=== PATIENT | female | born 1950 | race Caucasian/White ===

== ENCOUNTER 2020-02-21 07:33 | Outpatient (CLI) | payer BC, SELFPAY ==
[2020-02-21 08:09] VITALS: BMI 33.5
--- NOTE | 2020-02-21 08:11 | ECG_ITS ---
NAME OF STUDY: EXERCISE SESTAMIBI STRESS TEST INDICATION: Chest Pain EXERCISE DATA: The patient was exercised by Abiel protocol. Baseline heart rate was 98 beats per minute. Baseline blood pressure was 139/80 millimeters of mercury. Target heart rate was 153 beats per minute. Maximum heart rate achieved was 138, which was 90 % of the target heart rate. Maximum blood pressure was 189/80 millimeters of mercury. Total exercise time was 7 minutes 12 sec. Maximum METs achieved was 10.2, maximum VO2 was 35.7. The reason for ending the test maximum effort achieved. The patient complained of shortness of breath during the stress test, which then resolved at the end of the test. ELECTROCARDIOGRAM: BASELINE: Showed sinus rhythm, normal axis, no significant ST-T changes at the baseline noted. EXERCISE: At the peak exercise level, no significant ST-T changes suggestive of ischemia noted. RECOVERY: During the recovery period, heart rate dropped appropriately. No significant ST-T changes in the recovery suggestive of ischemia noted. CONCLUSION: 1. Exercise capacity fair. 2. Heart rate response was appropriate. 3. Blood pressure response was appropriate. 4. Symptoms not suggestive of ischemia. 5. Electrocardiogram portion of the stress test was not suggestive of ischemia. Electronically Signed On 02-23-2020 18:11:36 CDT by Opal Ortiz M.D. [email or web address]
--- NOTE | 2020-02-21 08:11 | NMCV_ITS ---
NM elizabeth perf SPECT r/s* [id number] Deedee Molina Age: 69 Gender: F : 1950 Exam Date: 02/21/2020 08:11 Ordering Phys: Opal Ortiz MD ([email or web address]) Technologist: LAURA Durham Exam Location: [facility] Indications: SHORTNESS OF BREATH STRESS TEST Please [facility] IMAGE PROTOCOL Rest/Stress 1 Exercise Day Radiopharmaceutical Dose (mCi) Administration Site Administered by Rest: Tc-99m 10.7 IV LAURA Durham Sestamibi Stress:Tc-99m 33.0 IV LAURA Durham Sestamibi Rest: 21-Feb-2020 60 Discovery 630 Stress: 21-Feb-2020 15 Discovery 630 Radiopharmaceutical was injected at 85 % maximum heart rate. Images obtained in supine and prone position. SPECT RESULTS Technical Quality: Excellent Raw Data Analysis: Normal Image Corrections: No attenuation or motion correction applied Summed Stress Score: 0 Summed Rest Score: 0 Summed Difference Score: 0 PERFUSION FINDINGS SPECT images demonstrate homogeneous tracer distribution throughout the myocardium. FUNCTIONAL RESULTS (calculated via Gated SPECT) Stress Image LV EF (%): 93 Stress EDV (mL):61 TID: 0.89 Stress ESV (mL):4 Rest Image LV EF (%): 93 FUNCTIONAL FINDINGS: There is normal left ventricular systolic function. IMPRESSIONS Myocardial perfusion imaging is normal and low probability for obstructive coronary artery disease. EKG segment will be documented separately. Opal Ortzi MD (Electronically Signed) Final Date: 21 February 2020 14:54 S
[2020-02-21 09:50] VITALS: PULSE 100
== END 2020-02-21 07:34 | disposition home or self-care (01) ==
LOC: RAD 07:35 → CDL 07:39
PROVIDERS: Family Provider Nurse Practitioner Family; PCP Nurse Practitioner Family; Visit Provider Internal Medicine Cardiovascular Disease
DX: R06.02 Shortness of breath (principal)
CPT/HCPCS: 78452; 93017; A9500

== ENCOUNTER 2020-03-04 07:37 | Outpatient (CLI) | payer BC, SELFPAY ==
--- NOTE | 2020-03-04 08:00 | USCV_ITS ---
Jesse Deedee Age: 69 Gender: F : 1950 Exam Date: 03/04/2020 07:39 Ordering Phys: Opal Ortiz MD ([email or web address]) Technologist: Tamra Conroy [place] [facility] [place]ication: SOB BP: 144 / 77 HR: 83 Rhythm: Sinus Technical Quality: Technically difficult study MEASUREMENTS (Male / Female) Normal Values 2D ECHO LV Diastolic Diameter PLAX 3.8 cm 4.2 - 5.9 / 3.9 - 5.3 cm LV Systolic Diameter PLAX 1.8 cm LV Chamber Size 2.9 cm IVS Diastolic Thickness 1.0 cm 0.6 - 1.0 / 0.6 - 0.9 cm IVS Systolic Thickness 1.4 cm LVPW Diastolic Thickness 1.4 cm 0.6 - 1.0 / 0.6 - 0.9 cm LVPW Systolic Thickness 1.5 cm RV Chamber Size 3.4 cm LVOT Diameter 2.0 cm LV Ejection Fraction 2D Teich 84.0 % LV Ejection Fraction MOD 2C 27.6 % LV Ejection Fraction 2C AL 27.6 % LA Diameter 3.5 cm LA Width 3.2 cm LA Height 4.0 cm RA Width 2.6 cm RA Height 3.7 cm M-MODE LV Diastolic Diameter MM 4.5 cm 4.2 - 5.9 / 3.9 - 5.3 cm LV Systolic Diameter MM 2.8 cm LV Ejection Fraction MM Teich 68.4 % IVS Diastolic Thickness MM 0.6 cm 0.6 - 1.0 / 0.6 - 0.9 cm IVS Systolic Thickness MM 1.1 cm LVPW Diastolic Thickness MM 0.8 cm 0.6 - 1.0 / 0.6 - 0.9 cm LVPW Systolic Thickness MM 1.3 cm Aortic Annulus Diameter 3.2 cm LA Ao Ratio MM 1.1 MV E Point Septal Separation 0.6 cm DOPPLER AV Peak Velocity 136.0 cm/s LVOT Peak Velocity 104.0 cm/s AV Area Cont Eq vti 2.4 cm squared AV Area Cont Eq pk 2.4 cm squared MV Area PHT 4.8 cm squared Mitral E to A Ratio 0.7 MV E' Velocity 10.0 cm/s Mitral E to MV E' Ratio 5.7 Mitral E to LV E' Lateral Ratio 4.9 Mitral E to LV E' Septal Ratio 6.7 TR Peak Velocity 227.0 cm/s TR Peak Gradient 20.5 mmHg TV Peak E Velocity 58.0 cm/s Right Atrial Pressure 3.0 mmHg Pulmonary Artery Systolic Pressu 23.6 mmHg PV Peak Velocity 78.0 cm/s RV Acceleration Time 0.1 s RV Ejection Time 0.3 s RV AcT/ET 0.4 FINDINGS Left Ventricle Normal left ventricular cavity size. Normal left ventricular systolic function. No regional wall motion abnormalities. Left ventricular ejection fraction is estimated at 68 %. Grade I/IV diastolic dysfunction (abnormal relaxation filling pattern), normal to mildly elevated filling pressures. Right Ventricle The right ventricle is normal in size and function. Right Atrium The right atrium is normal in size. Left Atrium The left atrium is normal in size. Mitral Valve Moderately thickened mitral valve. No mitral valve stenosis. No mitral valve regurgitation. Aortic Valve Moderate aortic valve calcification. No aortic valve stenosis. No aortic valve regurgitation. Tricuspid Valve Structurally normal tricuspid valve without significant stenosis or regurgitation. Pulmonary artery systolic pressure is normal. Pulmonic Valve Structurally normal pulmonic valve without significant stenosis. There is no pulmonic regurgitation. Pericardium Normal pericardium without effusion. Aorta Normal ascending aorta dimension. CONCLUSIONS 1-Normal left ventricular cavity size. Normal left ventricular systolic function. No regional wall motion abnormalities. Left ventricular ejection fraction is estimated at 68 %. Grade I/IV diastolic dysfunction (abnormal relaxation filling pattern), normal to mildly elevated filling pressures. 2-Moderately thickened mitral valve. No mitral valve stenosis. No mitral valve regurgitation. 3-Moderate aortic valve calcification. No aortic valve stenosis. No aortic valve regurgitation. 4-There is no pericardial effusion. 5-Pulmonary artery systolic pressure is within normal limits. 6-No significant change since the prior echocardiogram study of 05/31/2015. Opal Ortiz MD (Electronically Signed) Final Date: 05 March 2020 18:56 S
== END 2020-03-04 07:38 | disposition home or self-care (01) ==
LOC: US 07:39
PROVIDERS: PCP Nurse Practitioner Family; Visit Provider Internal Medicine Cardiovascular Disease
DX: R06.02 Shortness of breath (principal); I08.0 Rheumatic disorders of both mitral and aortic valves
CPT/HCPCS: 93306

== ENCOUNTER → 2020-03-06 10:07 | Outpatient (BNVA) | payer BC, SELFPAY | PROVIDERS: PCP Nurse Practitioner Family; Visit Provider Nurse Practitioner Family | DX: R06.02 Shortness of breath (principal); K21.9 Gastro-esophageal reflux disease without esophagitis | CPT/HCPCS: 71046 ==

== ENCOUNTER → 2020-03-12 09:37 | Outpatient (BNVA) | payer BC, SELFPAY | PROVIDERS: PCP Nurse Practitioner Family; Visit Provider Nurse Practitioner Family | DX: E03.9 Hypothyroidism, unspecified (principal); I10 Essential (primary) hypertension; R06.02 Shortness of breath | CPT/HCPCS: 80053; 80061; 84439; 84443 ==

== ENCOUNTER 2020-03-27 08:18 | Outpatient (CLI) | payer BC, SELFPAY ==
--- NOTE | 2020-03-27 13:03 | PFTS_ITS ---
Date of Study:03/27/20 Date of Dictation: MECHANICS: Forced vital capacity (FVC) is normal. Forced expiratory volume in one second (FEV1) is normal. FEV1/FVC is normal. FLOW VOLUME LOOP: Normal. LUNG VOLUMES: Not measured DIFFUSING CAPACITY FOR CARBON MONOXIDE: Not measured INTERPRETATION: The spirometry is normal. MTDD
== END 2020-03-27 08:19 | disposition home or self-care (01) ==
PROVIDERS: PCP Nurse Practitioner Family; Visit Provider Nurse Practitioner Family
DX: R06.02 Shortness of breath (principal)
CPT/HCPCS: 94010

== ENCOUNTER 2020-04-03 14:16 | Outpatient (CLI) | payer BC, SELFPAY ==
[2020-04-03 14:46] LABS: Add Urine Microscopic? NO
[2020-04-03 14:51] LABS: Basophils % 0.4 %; Eosinophils # 0.2 10^3/uL (0.0-0.8); Eosinophils % 2.1 %; Hematocrit 39.9 % (37.0-47.0); Hemoglobin 12.5 g/dL (11.5-15.3); Lymphocytes # 1.8 10^3/uL (0.8-4.8); Mean Corpuscular HGB Conc 31.3 g/dL (30.0-36.0); Mean Corpuscular Hemoglobin 30.2 pg (28.0-34.0); Mean Corpuscular Volume 96.4 fL (81-99); Mean Platelet Volume 10.3 fL (7.4-10.4); Monocytes # 0.7 10^3/uL (0.2-0.9); Monocytes % 7.5 %; Neutrophils # 6.25 10^3/uL (1.8-7.7); Neutrophils % 69.8 %; Nucleated Red Blood Cells % 0 %; Platelet Count 325 10^3/cmm (130-400); Red Blood Count 4.14 10^6/uL (4.1-5.3); Red Cell Distribution Width 12.6 % (12.1-15.1)
[2020-04-03 15:08] LABS: Bilirubin Urine Neg (NEGATIVE); Blood Urine Neg (Negative); Glucose Urine UA Norm (Normal); Ketones Urine Negative (Negative); Leukocyte Esterase Urine Negative (Negative); Nitrate Urine Negative (Negative); Protein Urine Neg (Negative); Urine Appearance Clear (CLEAR); Urine Color Yellow (Yellow); Urobilinogen Urine Norm (Negative)
[2020-04-03 15:12] LABS: Alanine Aminotransferase 17 U/L (0-33); Albumin Level 4.8 g/dL (3.5-5.2); Alkaline Phosphatase 92 IU/L (35-105); Anion Gap 13.1 (5-19); Aspartate Amino Transferase 16 U/L (0-32); Blood Urea Nitrogen 23 mg/dL (8-23); Calcium 9.3 mg/dL (8.5-10.5); Carbon Dioxide 27 mmol/L (22-29); Chloride 103 mmol/L (98-107); Globulin 2.3 g/dL (1.3-4.6); Glomerular Filtration Rate 83.5 mL/min (90-130); Glucose 104 mg/dL (65-115); Osmolality Calculated 285 mOsm/kg (285-295); Potassium 4.1 mmol/L (3.5-5.1); Sodium 139 mmol/L (136-145); Total Bilirubin 0.2 mg/dL (0.15-1.2); Total Protein 7.1 g/dL (6.6-8.7)
[2020-04-04 16:25] LABS: Bermuda Class 0; Bermuda Grass (G2) Ige <0.10 kU/L; Cat Dander (E1) Ige <0.10 kU/L; Cat Dander Class 0; Common Ragweed (Short) (W1) Ig <0.10 kU/L; Dog Dander (E5) Ige <0.10 kU/L; Dog Dander Class 0; Elm (T8) Ige <0.10 kU/L; Elm Class 0; English Plantain (W9) Ige <0.10 kU/L; English Plantain Class 0; Immunoglobulin E 97 kU/L (<OR=114); Immunoglobulin E 99 kU/L (<OR=114); Johnson Grass (G10) Ige <0.10 kU/L; Johnson Grass Cl 0; June Grass Class 0; June Grass(Kentucky Blue) (G8) <0.10 kU/L; Lamb'S Quarters (Goose Foot) <0.10 kU/L; Lamb'S Quarters Class 0; Maple (Box Elder) (T1) Ige <0.10 kU/L; Maple Class 0; Meadow Fescue (G4) Ige <0.10 kU/L; Meadow Fescue Class 0; Oak (T7) Ige <0.10 kU/L; Oak Class 0; Orchard Grass (Cocksfoot) (G3) <0.10 kU/L; Perennial Rye Grass (G5) Ige <0.10 kU/L; Perennial Rye Grass Class 0; Ragweeed Class 0; Rough Marsh Elder (W16) Ige <0.10 kU/L; Rough Marsh Elder Class 0; Sweet Vernal Class 0; Sweet Vernal Grass (G1) Ige <0.10 kU/L; Timothy Grass (G6) Ige <0.10 kU/L; Timothy Grass Class 0
[2020-04-07 17:25] LABS: Alternaria Alternata (M6) Ige <0.10 kU/L; Alternaria Class 0; D. Farinae Class 2; Dermatophagoides Class 3; Dermatophagoides Farinae (D2) 2.56 kU/L; House Dust (Greer) (H1) Ige 0.57 kU/L; House Dust (Hollister- Stier) 0.56 kU/L; House Dust Class 1; Mucor Racemosus Class 0; Penicillium Class 0; Penicillium Notatum (M1) Ige <0.10 kU/L
[2020-04-07 18:56] LABS: Aspergillus Fumigatus, Igg Ab, 16.8 mg/L (<=102)
== END 2020-04-03 14:17 | disposition home or self-care (01) ==
LOC: LAB 14:17
PROVIDERS: PCP Nurse Practitioner Family; Visit Provider Internal Medicine Pulmonary Disease
DX: R06.02 Shortness of breath (principal)
CPT/HCPCS: 36415; 80053; 81003; 82785; 85025; 86003

== ENCOUNTER 2020-04-14 09:08 | Outpatient (CLI) | payer BC, SELFPAY ==
--- NOTE | 2020-04-14 09:30 | CT_ITS ---
WS: [id number] CT CHEST WITH INTRAVENOUS CONTRAST HISTORY: shortness of breath TECHNIQUE: Contiguous 5 mm axial imaging performed on the thorax. Coronal and sagittal reformats are submitted. All CT scans at [facility] use at least one of these dose optimization techniq ues: automated exposure control; mA and/or kV adjustment per patient size (includes targeted exams wh ere dose is matched to clinical indication); or iterative reconstruction. CONTRAST: Omnipaque 300; 95 mL IV. DLP: 916.87 mGycm COMPARISON: None available. Lungs and central airway: Poor inspiratory effort. Dependent changes at the lung bases bilaterally. N o suspicious nodule or mass identified. No pneumonia or reticulations. Pleura: Normal. No pleural effusion. Heart and pericardium: Mild enlargement the heart chambers. No pericardial effusion. Mediastinum and ghazal: No mediastinum or hilar adenopathy. Vessels: Normal size aortic and pulmonary artery. No coronary artery calcifications. Chest wall and lower neck: Thyroid has been surgically removed. Soft tissues of the chest wall are ne gative. Upper abdomen: Prior LAP banding procedure. Prior cholecystectomy. Mild hepatic steatosis. There is m ild central bile duct dilatation within the liver is probably physiologic. No adrenal mass. Small hia ochoa hernia. Osseous structures: Mild thoracic spondylosis. No osteoblastic or osteolytic bone disease. CT/CT chest w con* [id number] IMPRESSION: 1. Poor inspiration. 2. No pneumonia or mass. 3. Prior cholecystectomy and LAP banding. 4. Small hiatal hernia.
[2020-04-14] MEDS: iohexol 300 mg/mL 100 mL Btl IV (10:13)
== END 2020-04-14 09:09 | disposition home or self-care (01) ==
LOC: RADWPI 09:11
PROVIDERS: Family Provider Nurse Practitioner Family; PCP Nurse Practitioner Family; Visit Provider Internal Medicine Pulmonary Disease
DX: R06.02 Shortness of breath (principal); K44.9 Diaphragmatic hernia without obstruction or gangrene
CPT/HCPCS: 71260; Q9967

== ENCOUNTER 2020-05-28 12:12 | Outpatient (CLI) | payer BC, SELFPAY ==
--- NOTE | 2020-05-28 12:18 | XRR_ITS ---
PROCEDURE INFORMATION: Exam: XR Chest, 2 Views Exam date and time: 05/28/2020 12:57 PM Age: 69 years old Clinical indication: Cough and shortness of breath; Additional info: Pneumonia f/u TECHNIQUE: Imaging protocol: XR of the chest Views: 2 views. COMPARISON: CT chest w con* [id number] 04/14/2020 10:05 AM FINDINGS: Lungs: Unremarkable. No consolidation. Pleural space: Unremarkable. No pleural effusion. No pneumothorax. Heart/Mediastinum: Unremarkable. No cardiomegaly. Bones/joints: Unremarkable. XR/XR chest 2V* [id number] IMPRESSION: No acute findings.
[2020-05-28 12:48] LABS: Basophils # 0.1 10^3/uL (0.0-0.1); Basophils % 0.6 %; Eosinophils # 0.1 10^3/uL (0.0-0.8); Eosinophils % 1.4 %; Hematocrit 39.4 % (37.0-47.0); Hemoglobin 12.3 g/dL (11.5-15.3); Lymphocytes # 1.6 10^3/uL (0.8-4.8); Lymphocytes % 18.8 %; Mean Corpuscular HGB Conc 31.2 g/dL (30.0-36.0); Mean Corpuscular Hemoglobin 29.9 pg (28.0-34.0); Mean Corpuscular Volume 95.9 fL (81-99); Mean Platelet Volume 10.2 fL (7.4-10.4); Monocytes # 0.7 10^3/uL (0.2-0.9); Monocytes % 7.8 %; Neutrophils # 5.96 10^3/uL (1.8-7.7); Neutrophils % 71.3 %; Nucleated Red Blood Cells % 0 %; Platelet Count 300 10^3/cmm (130-400); Red Blood Count 4.11 10^6/uL (4.1-5.3); Red Cell Distribution Width 13.6 % (12.1-15.1); White Blood Count 8.4 10^3/uL (4.0-10.0)
[2020-05-28 13:18] LABS: C Reactive Protein 1.2 mg/L (0.0-4.9)
[2020-05-28 13:45] LABS: Erythrocyte Sedimentation Rate 19 mm/hr (0-15)
[2020-05-29 12:06] LABS: Angiotensin Converting Enzyme 33 U/L (9-67)
[2020-05-29 13:32] LABS: Cyclic Citrullinated Peptide <16 UNITS
[2020-05-29 14:03] LABS: Anti-Double Strand DNA AB 2 IU/mL; Anti-Nuclear Antibody Screen NEGATIVE (NEGATIVE); SCL 70 <1.0 NEG AI (<1.0 NEG); SS A Ro Sjogrens Antibody <1.0 NEG AI (<1.0 NEG); SS-B/LA IGG <1.0 NEG AI (<1.0 NEG); Sm/RNP Antibody <1.0 NEG AI (<1.0 NEG)
[2020-06-01 21:52] LABS: Smooth Muscle Ab Screen NEGATIVE (NEGATIVE)
== END 2020-05-28 12:13 | disposition home or self-care (01) ==
PROVIDERS: PCP Nurse Practitioner Family; Visit Provider Internal Medicine Pulmonary Disease
DX: R05 Cough (principal); J45.909 Unspecified asthma, uncomplicated; K21.9 Gastro-esophageal reflux disease without esophagitis; R06.02 Shortness of breath; M19.90 Unspecified osteoarthritis, unspecified site; J18.9 Pneumonia, unspecified organism
CPT/HCPCS: 36415; 71046; 82164; 83516; 85025; 85651; 86038; 86140; 86225; 86235; 86431

== ENCOUNTER 2020-06-18 08:37 | Outpatient (CLI) | payer BC, SELFPAY ==
--- NOTE | 2020-06-18 09:00 | CT_ITS ---
WS: [id number] Chest CT, high resolution. HISTORY: Chronic short of breath. Arthritis. COMPARISON: 04/14/2020. High-resolution imaging is performed in supine and prone positioning with inspiration and expiration. Focal subsegmental area of very early groundglass attenuation near the lingula. There is additional v seven minimal interstitial thickening posteriorly in the lower lung rodriguez on inspiration. On expiratio n there is no significant air trapping. The areas of groundglass attenuation become more prominent du e to the expiration. No pneumonia or suspicious nodule. Slight improvement in the groundglass attenua tion at the lingula with prone positioning. There is also resolution of the interstitial thickening w ith prone positioning. 2 mm nodule at the RIGHT lung base, image 25 of series 2. No significant adenopathy identified on this examination. Study is not sufficient to exclude subtle l ymph nodes. Prior cholecystectomy. CT/CT chest wo con [id number] IMPRESSION: 1. No significant interstitial disease recognized. Mild interstitial thickenin g at the lung bases seen on supine positioning resolves during prone positionin g. 2. No pneumonia. 3. No honeycombing. 4. No air trapping.
== END 2020-06-18 08:38 | disposition home or self-care (01) ==
PROVIDERS: PCP Nurse Practitioner Family; Visit Provider Internal Medicine Pulmonary Disease
DX: R06.02 Shortness of breath (principal); M19.90 Unspecified osteoarthritis, unspecified site
CPT/HCPCS: 71250

== ENCOUNTER 2020-06-24 11:00 | Outpatient (CLI) | payer BC, SELFPAY | END 2020-06-24 11:01 | disposition home or self-care (01) | LOC: SLEEP 06-26 11:54 | PROVIDERS: PCP Nurse Practitioner Family; Visit Provider Internal Medicine Pulmonary Disease | DX: R06.02 Shortness of breath (principal); J43.9 Emphysema, unspecified; R05 Cough | CPT/HCPCS: 87635; 94762 ==

== ENCOUNTER → 2020-06-26 10:51 | Outpatient (BNVA) | payer BC, SELFPAY | PROVIDERS: PCP Nurse Practitioner Family; Visit Provider Nurse Practitioner Family | DX: M25.571 Pain in right ankle and joints of right foot (principal); S93.491A Sprain of other ligament of right ankle, initial encounter; W19.XXXA Unspecified fall, initial encounter | CPT/HCPCS: 73610; 73630 ==

== ENCOUNTER 2020-06-30 13:19 | Outpatient (CLI) | payer BC, SELFPAY ==
--- NOTE | 2020-06-30 14:44 | PFTS_ITS ---
Date of Study:06/30/20 Date of Dictation: MECHANICS: Forced vital capacity (FVC) is normal. Forced expiratory volume in one second (FEV1) is . Normal FEV1/FVC is normal. FLOW VOLUME LOOP: Normal. LUNG VOLUMES: Not measured DIFFUSING CAPACITY FOR CARBON MONOXIDE: Not measured Methacholine challenge test: Positive INTERPRETATION: The prebronchodilator spirometry is normal. The methacholine challenge test is positive. MTDD
[2020-06-30 14:46] VITALS: BP 116/70; BP 131/69
--- NOTE | 2020-06-30 14:52 | PC.RESP ---
GIVEN PATIENT A METHACHOLINE CHALLENGE TEST, PATIENT HAD A REACTION, GIVEN 1 ALBUTEROL TREATMENT WITH SOME IMPROVEMENT ASK PATIENT IF SHE WOULD LIKE ANOTHER TREATMENT SHE STATED NO , ASK IF SHE FELT LIKE SHE NEEDED TO GO TO THE ER AND SHE SAID NO , SHE STATED SHE WAS JUST READY TO LEAVE
== END 2020-06-30 13:20 | disposition home or self-care (01) ==
LOC: RT 13:20
PROVIDERS: PCP Nurse Practitioner Family; Visit Provider Internal Medicine Pulmonary Disease
DX: R06.02 Shortness of breath (principal)
CPT/HCPCS: 94060; 94070; 94618; 94726; 94729; J7611; J7674

== ENCOUNTER 2020-07-07 11:19 | Outpatient (CLI) | payer BC, SELFPAY ==
--- NOTE | 2020-07-07 11:29 | MM_ITS ---
WS: [id number] BILATERAL DIGITAL SCREENING MAMMOGRAPHY WITH CAD CLINICAL INFORMATION: SCREENING HISTORY: Screening mammogram. No current complaints. COMPARISON: May 22, 2019 TECHNIQUE: Bilateral CC and MLO views. FINDINGS: History of breast reduction. Scattered fibroglandular densities bilaterally. No suspicious focal mass, asymmetry, calcifications, or architectural distortion. No evidence of malignancy. A few stable punctate and lucent centered sanya cifications. MM/[place] [id number] IMPRESSION: BI-RADS: 2-Benign FOLLOW UP: 1 Year Follow-up Recommend return to annual screening mammography.
== END 2020-07-07 11:20 | disposition home or self-care (01) ==
LOC: RADSHAW 11:22
PROVIDERS: PCP Nurse Practitioner Family; Visit Provider Nurse Practitioner Family
DX: Z12.31 Encounter for screening mammogram for malignant neoplasm of breast (principal)
CPT/HCPCS: 77067

== ENCOUNTER 2021-07-22 10:46 | Outpatient (CLI) | payer BC, SELFPAY ==
--- NOTE | 2021-07-22 10:51 | CT_ITS ---
WS: [id number] CT NECK WITH CONTRAST HISTORY: LOCALIZED SWELLING, MASS AND LUMP TECHNIQUE: Contiguous 5 mm axial images are performed through the neck with intravenous contrast. Sag ittal and coronal reformats are also submitted. All CT scans at [facility] use at least one o f these dose optimization techniques: automated exposure control; mA and/or kV adjustment per patient size (includes targeted exams where dose is matched to clinical indication); or iterative reconstruc tion. CONTRAST: CONTRAST: Omnipaque 300; 95 mL IV. DLP: 859.26 mGycm COMPARISON: None available. Marker is placed over the LEFT neck at the site of the palpable abnormality. This marker corresponds to the masseter muscle which is normal. Symmetric to the RIGHT masseter muscle. No overlying soft tis gianna thickening. There is no stone or enlargement of the parotid duct. The LEFT parotid duct overlying the masseter muscle is very minimally more prominent than the RIGHT parotid duct. No stones or adjac ent inflammation. Nasopharynx, oropharynx, hypopharynx and larynx are unremarkable. No soft tissue masses or abnormal e nhancement. Torus tubarius and fossa of Rosenmuller and parapharyngeal fat are normal. No significant lymphadenopathy is identified. Prior thyroidectomy. Parotid and submandibular glands are normal. Degenerative disc disease and osteophytosis. No cervical fracture. Bilateral mild to moderate facet j oint arthritis at multiple levels throughout the cervical spine. Visualized portions of the skull base demonstrate no abnormalities. Orbits and globes are within norm al limits. No soft tissue masses. Visualized paranasal sinuses and mastoid air cells are normal. Lung apices are clear. CT/CT neck w con* [id number] IMPRESSION: 1. Palpable area corresponds to a normal LEFT masseter muscle and the overlyin g parotid duct. The LEFT parotid duct is very slight minimally more prominent t godinez the RIGHT. No stone or adjacent inflammation to suggest ductal obstruction. 2. No adenopathy. 3. Prior thyroidectomy.
[2021-07-22 11:14] LABS: Blood Urea Nitrogen 26 mg/dL (8-23); Glomerular Filtration Rate 83.2 mL/min (90-130)
[2021-07-22] MEDS: iohexol 300 mg/mL 100 mL Btl IV (11:21)
== END 2021-07-22 10:47 | disposition home or self-care (01) ==
PROVIDERS: PCP Nurse Practitioner; Visit Provider Specialist
DX: R22.1 Localized swelling, mass and lump, neck (principal); E89.0 Postprocedural hypothyroidism
CPT/HCPCS: 70491; 82565; 84520; Q9967

== ENCOUNTER 2022-01-20 14:03 | Outpatient (CLI) | payer BC, SELFPAY ==
--- NOTE | 2022-01-20 14:10 | MM_ITS ---
WS: [id number] BILATERAL 3D TOMOSYNTHESIS DIGITAL DIAGNOSTIC MAMMOGRAPHY WITH CAD CLINICAL INFORMATION: RT BREAST LUMPHistory of bilateral implant removal and breast reduction. Palpab le lump of the scar site COMPARISON: July 07, 2020 TECHNIQUE: Bilateral CC, MLO, and ML views. FINDINGS: Scattered fibroglandular densities bilaterally. Punctate and lucent centered calcifications. Possible marker RIGHT breast in the area of palpable concern. Parenchymal fibrosis deep to this area is simil ar to the prior examinations. Ultrasound is pending. LEFT breast appears unchanged from previous ULTRASOUND BREAST RIGHT TECHNIQUE: Ultrasound right breast focused area of concern. CLINICAL INFORMATION: RT BREAST LUMP COMPARISON: None. FINDINGS: Ultrasound RIGHT breast at the 6 clock position. In the area of concern, 3 cm from the nipple is a 1. 1 x 0.3 x 0.4 cm anechoic dilated duct. No significant internal debris or lesion. This has a benign a ppearance. Associated scar tissue deep to the surgical site. Dense parenchymal fibrosis. No suspiciou s lesions to target for biopsy. MM/[place] [id number] IMPRESSION: BI-RADS: 2-Benign FOLLOW UP: 1 Year Follow-up Recommend return to annual diagnostic mammography.
== END 2022-01-20 14:04 | disposition home or self-care (01) ==
PROVIDERS: PCP Nurse Practitioner; Visit Provider Nurse Practitioner
DX: N63.10 Unspecified lump in the right breast, unspecified quadrant (principal)
CPT/HCPCS: 76642; 77062

== ENCOUNTER → 2022-06-14 14:17 | Outpatient (BNVA) | payer BC, SELFPAY | PROVIDERS: PCP Nurse Practitioner; Visit Provider Student in an Organized Health Care Education/Training Program | DX: M17.11 Unilateral primary osteoarthritis, right knee (principal) | CPT/HCPCS: 73560; 73565 ==

== ENCOUNTER 2022-06-14 16:10 | Outpatient (CLI) | payer BC, SELFPAY | END 2022-06-14 16:11 | disposition home or self-care (01) | LOC: SPT 16:10 | PROVIDERS: PCP Nurse Practitioner; Visit Provider Student in an Organized Health Care Education/Training Program | DX: Z46.89 Encounter for fitting and adjustment of other specified devices (principal); M25.561 Pain in right knee | CPT/HCPCS: 97760; L1812 ==

== ENCOUNTER → 2022-09-27 09:11 | Outpatient (BNVA) | payer BC, SELFPAY | PROVIDERS: PCP Nurse Practitioner; Visit Provider Student in an Organized Health Care Education/Training Program | DX: M17.11 Unilateral primary osteoarthritis, right knee (principal); Z68.34 Body mass index [BMI] 34.0-34.9, adult | CPT/HCPCS: 73560; 73565 ==

== ENCOUNTER 2022-09-30 10:51 | Outpatient (CLI) | payer BC, SELFPAY ==
--- NOTE | 2022-09-30 11:15 | US_ITS ---
WS: [id number] THYROID ULTRASOUND HISTORY: thyroid cancer, prior thyroidectomy. COMPARISON: None available. Status post complete thyroidectomy. No thyroid tissue or recurrent mass in the thyroid bed. There are small bilateral lymph nodes along the cervical chains. These lymph nodes are normal size, shape and echogenicity. US/US thyroid [id number] IMPRESSION: Status post complete thyroidectomy. No recurrent mass in the thyroid bed.
== END 2022-09-30 10:52 | disposition home or self-care (01) ==
PROVIDERS: PCP Nurse Practitioner; Visit Provider Internal Medicine
DX: C73 Malignant neoplasm of thyroid gland (principal); E89.0 Postprocedural hypothyroidism
CPT/HCPCS: 76536

== ENCOUNTER 2022-10-11 08:19 | Outpatient (CLI) | payer BC, SELFPAY ==
--- NOTE | 2022-10-11 08:30 | CT_ITS ---
WS: [id number] NONCONTRAST CT RIGHT KNEE WITH SAE PROTOCOL TECHNIQUE: Noncontrast CT RIGHT knee WITH SAE PROTOCOL CLINICAL INFORMATION: Sae components COMPARISON: None. DLP: 883.[address] scans at [facility] use at least one of these dose optimization techniques: automated e xposure control; mA and/or kV adjustment per patient size (includes targeted exams where dose is matc hed to clinical indication); or iterative reconstruction. FINDINGS: Moderate degenerative arthritis both hips with joint space narrowing. Degenerative arthritis sacroili ac joints. Small suprapatellar effusion. Soft tissue edema. Advanced tricompartmental arthritis RIGHT knee worse involving the lateral joint compartment. Zpzy-hn-mjwm articulation. Hypertrophic patella. Patellar enthesophytes. Sigmoid diverticulosis. CT/CT knee RT wo con* [id number] IMPRESSION: Images obtained for preoperative purposes.
== END 2022-10-11 08:20 | disposition home or self-care (01) ==
LOC: RAD 08:21
PROVIDERS: PCP Nurse Practitioner; Visit Provider Student in an Organized Health Care Education/Training Program
DX: M17.11 Unilateral primary osteoarthritis, right knee (principal)
CPT/HCPCS: 73700

== ENCOUNTER 2022-10-11 08:20 | Outpatient (CLI) | payer BC, SELFPAY ==
--- NOTE | 2022-10-11 08:44 | XR_ITS ---
WS: [id number] Exam: XR chest 2V* [id number] Date/Time of Exam: 10/11/2022 8:46 AM Reason For Exam: PREPROCEDURAL EXAMINATION Comparison 05/28/2020. The lungs are fully expanded and clear. Normal cardiomediastinal silhouette. No pleural effusions. De generative changes of the dorsal spine. XR/XR chest 2V* [id number] IMPRESSION: 1. No acute process identified. No change.
--- NOTE | 2022-10-11 15:41 | ECG_ITS ---
[facility] Test Date: 2022-10-11 Pat Name: Perla Molina Department: Room: Gender: Female Ticket Puller: : 1950 Requested By: Angeles Nielsen Order Number: [id number] Alia MD: Delio Eduardo M.D. Measurements Intervals [place] Rate: 90 P: 50 DE: 165 QRS: 11 QRSD: 85 T: 69 QT: 355 QTc: 435 Interpretive Statements SINUS RHYTHM POSSIBLE LEFT ATRIAL ENLARGEMENT [-0.1mV P-WAVE IN V1/V2] NONSPECIFIC T-WAVE ABNORMALITY Compared to ECG 05/30/2015 16:02:55 T-wave abnormality now present Electronically Signed On 10-12-2022 7:42:14 FUR TRAPPER by Delio Eduardo M.D. [id number] f
== END 2022-10-11 08:21 | disposition home or self-care (01) ==
LOC: RAD 08:24
PROVIDERS: PCP Nurse Practitioner; Visit Provider Nurse Practitioner
DX: Z01.818 Encounter for other preprocedural examination (principal)
CPT/HCPCS: 71046; 93005

== ENCOUNTER 2022-11-09 14:46 | Outpatient (CLI) | payer BC, SELFPAY ==
[2022-11-09 15:56] LABS: Free T4 Free Thyroxine 1.06 ng/dL (0.82-1.77); Thyroid Stimulating Hormone 3.57 uIU/mL (0.27-4.20)
[2022-11-19 22:10] LABS: Thyroglobulin Level <0.4 ng/mL
== END 2022-11-09 14:47 | disposition home or self-care (01) ==
PROVIDERS: PCP Nurse Practitioner; Visit Provider Internal Medicine
DX: E03.9 Hypothyroidism, unspecified (principal)
CPT/HCPCS: 36415; 84432; 84439; 84443; 86800

== ENCOUNTER 2022-11-17 06:00 | Outpatient (CLI) | payer BC, SELFPAY | END 2022-11-17 06:01 | disposition home or self-care (01) | LOC: LAB 11-21 23:03 | PROVIDERS: PCP Nurse Practitioner; Visit Provider Student in an Organized Health Care Education/Training Program | DX: Z01.812 Encounter for preprocedural laboratory examination (principal); M17.11 Unilateral primary osteoarthritis, right knee | CPT/HCPCS: 80048; 81003; 85025; 86850; 86900 ==

== ENCOUNTER 2022-11-24 10:35 | Observation (INO) | payer BC, SELFPAY ==
[2022-11-17 14:03] LABS: Add Urine Microscopic? NO; Charge for UA Resulting for Rev
[2022-11-17 14:09] LABS: Basophils # 0.1 10^3/uL (0.0-0.1); Basophils % 0.6 %; Eosinophils # 0.2 10^3/uL (0.0-0.8); Eosinophils % 2.2 %; Hematocrit 42.6 % (37.0-47.0); Hemoglobin 13.4 g/dL (11.5-15.3); Lymphocytes # 1.4 10^3/uL (0.8-4.8); Lymphocytes % 15.8 %; Mean Corpuscular HGB Conc 31.5 g/dL (30.0-36.0); Mean Corpuscular Hemoglobin 31.8 pg (28.0-34.0); Mean Corpuscular Volume 100.9 fl (81-99); Mean Platelet Volume 10.7 fL (7.4-10.4); Monocytes # 0.6 10^3/uL (0.2-0.9); Neutrophils # 6.43 10^3/uL (1.8-7.7); Neutrophils % 74.2 %; Nucleated Red Blood Cells % 0 %; Platelet Count 282 10^3/cmm (130-400); Red Blood Count 4.22 10^6/uL (4.1-5.3); Red Cell Distribution Width 13.1 % (12.1-15.1); White Blood Count 8.7 10^3/uL (4.0-10.0)
[2022-11-17 14:13] LABS: Bilirubin Urine Neg (Negative); Blood Urine Neg (Negative); Glucose Urine UA Norm (Normal); Ketones Urine Negative (Negative); Leukocyte Esterase Urine Negative (Negative); Nitrate Urine Negative (Negative); Protein Urine Neg (Negative); Urine Appearance Clear (CLEAR); Urine Color Yellow (Yellow); Urobilinogen Urine Norm (Negative); pH Urine 6 (5-7)
[2022-11-17 14:25] LABS: Anion Gap 14.8 (5-19); Blood Urea Nitrogen 26 mg/dL (8-23); Calcium 9.2 mg/dL (8.5-10.5); Carbon Dioxide 27 mmol/L (22-29); Chloride 101 mmol/L (98-107); Glomerular Filtration Rate 61.9 mL/min (90-130); Glucose 126 mg/dL (65-115); Osmolality Calculated 294 mOsm/kg (285-295); Potassium 3.8 mmol/L (3.5-5.1); Sodium 139 mmol/L (136-145)
--- NOTE | 2022-11-17 15:41 | ANES.PREANE2 ---
Pre-Anesthetic Assessment Height/Weight: Height 1.65 m Weight 107.048 kg Preop Diagnosis: Right knee degenerative joint disease Operation Date: 11/24/22 10:30 Proposed Procedures p Right knee total Sae 02479, M25.569, M17.11(Right) - Jac Mae DO Familial anesthetic complications: none Was Beta Darryl taken within 24 hours: N/A Was Clonidine taken within 24 hours: N/A Social No alcohol and No tobacco THC edible use Exam alert, oriented x 3, clear to auscultation bilaterally and regular rate & rhythm Airway Submandibular: within normal limits Cervical ROM: within normal limits Mallampati: Class II Dentition: full Comments: Comments: H/O head and neck radiation Pulmonary Asthma CV/HEM Hypertension GI Gastroesophageal Reflux Disease Metabolic Thyroid Disease [facility] [place] Osteoarthritis/DJD Neuropsych Anxiety and Depression Anesthetic Plan ASA status: 3 Anesthesia: Regional (specify below) (SAB with adductor blk) Medications/Allergies Home Medications Medication Instructions Recorded Confirmed Last Taken Type aspirin 81 mg tablet,delayed 81 mg PO DAILY 01/16/20 11/17/22 11/10/22 History release (Adult Low Dose Aspirin) fluticasone propionate 50 1 spray intranasal DAILY #16 grams 04/24/20 11/17/22 11/17/22 Rx mcg/actuation nasal spray,suspension (Flonase Allergy Relief) budesonide-formoterol HFA 160 2 puff inhalation BID #10.2 grams 07/11/20 11/17/22 11/17/22 Rx mcg-4.5 mcg/actuation aerosol inhaler (Symbicort) albuterol sulfate 90 mcg/actuation See Rx Instructions .Route 08/19/20 11/17/22 11/17/22 Rx aerosol inhaler .COMPLEX ##18 montelukast 10 mg tablet 10 mg PO DAILY #30 tabs 08/28/20 11/17/22 11/17/22 Rx (Singulair) esomeprazole magnesium 40 mg 40 mg PO DAILY 01/26/21 11/17/22 11/17/22 History capsule,delayed release (Nexium) fluoxetine 40 mg capsule (Prozac) 40 mg PO DAILY 04/23/21 11/17/22 11/17/22 History HINGED KNEE BRACE #1 ea 06/14/22 11/11/22 Unknown Rx levothyroxine 150 mcg tablet 150 mcg PO DAILY #90 tabs 09/27/22 11/17/22 11/17/22 Rx meloxicam 15 mg tablet 15 mg PO DAILY 10/12/22 11/17/22 11/10/22 History olmesartan 40 1 tab PO DAILY 10/12/22 11/17/22 11/17/22 History mg-hydrochlorothiazide 12.5 mg tablet Allergies Allergy/AdvReac Type Severity Reaction Status Date / Time fentanyl Allergy Mild Hives Verified 11/17/22 12:48 meperidine [From Demerol] Allergy Mild Hives Verified 11/17/22 12:48 morphine Allergy Mild Hives Verified 11/17/22 12:48 amoxicillin Allergy Unknown [place] Verified 11/17/22 12:48 [facility] Anesthesia Medical History Chronic cough GERD (gastroesophageal reflux disease) Hemoptysis, unspecified Hypothyroidism Palpitation Preoperative evaluation to rule out surgical contraindication Primary osteoarthritis of right knee Shortness of breath Family History Grandmother Cancer Breast CA Mother Heart disease Father Heart disease Diabetes Social History Smoking and tobacco status: former smoker Second hand smoke exposure: Yes Smoking risk assessment/counseling performed?: Yes Alcohol intake: current Alcohol intake frequency: holidays/special occasions only Lives independently: Yes Household members: spouse Marital status: Current occupational status: retired Pets and animals: Yes Current gender identity: Female Data Anesthesia 11/17/22 13:08 11/17/22 13:08 Short CBC 11/17/22 Range/Units 13:08 WBC 8.7 (4.0-10.0) 10^3/uL Hgb 13.4 (11.5-15.3) g/dL Hct 42.6 (37.0-47.0) % MCV 100.9 H (81-99) fl Plt Count 282 (130-400) 10^3/cmm Neut % (Auto) 74.2 % Neut # (Auto) 6.43 (1.8-7.7) 10^3/uL BMP 11/17/22 13:08 Sodium 139 Potassium 3.8 Chloride 101 Carbon Dioxide 27 BUN 26 H Creatinine 0.9 Glucose 126 H Calcium 9.2 Urine 11/17/22 Range/Units 13:08 Urine Color Yellow (Yellow) Urine Appearance Clear (CLEAR) Urine pH 6 (5-7) Ur Specific [place] 1.020 (1.005-1.030) Urine Protein Neg (Negative) Urine Glucose (UA) Norm (Normal) Urine Ketones Negative (Negative) Urine Nitrate Negative (Negative) Urine Bilirubin Neg (Negative) Ur Leukocyte Esterase Negative (Negative) Blood Bank 11/17/22 13:08 Blood Type B Positive Rho(D) Type Positive Cardiac Studies: Echocardiogram Ultrasound 03/04/20 Sestamibi Stress Test (Cardiology) 02/21/20
[2022-11-24] VITALS (15 sets, daily range): BP systolic 93–156; BP diastolic 56–76; PULSE 77–100; RESP 12–18; TEMP 36.3–36.9; O2SAT 90–94; BMI 39.2
[2022-11-24] MEDS: acetaminophen 1,000 MG/100 ML PIGGYBACK 400 MG IV ×3 (06:40→22:52)
[2022-11-24] MEDS: lactated ringers 500 ML IV (06:40)
[2022-11-24] MEDS: ketorolac 30 mg/mL INJ IVP (06:41)
[2022-11-24] MEDS: midazolam 1 mg/mL INJ 2 mL 2 MG IVP (06:58)
--- NOTE | 2022-11-24 07:00 | PM.HP ---
Providers/Chief Complaint Admitting Physician: Jac Mae DO/orthopedic surgery Primary Care Provider: CELESTINO Quintana Chief Complaint: Right knee degenerative joint disease History of Present Illness Perla Molina is a 72 year old female patient's known established my practice has been suffering from right knee degenerative joint disease she is failed conservative treatment of injections. Through shared decision making she would like to proceed with a right total knee arthroplasty. She has been worked up in the outpatient setting by anesthesia as well as her primary care provider as well as been seen by supervisor computer operations due to atypical finding on EKG seen by cardiology and at this point in time recommended no further testing and that she is okay to proceed with surgical intervention. She is here today for right total knee arthroplasty. Consent reviewed and signed with patient all questions answered. Denies any fevers chills chest pain shortness of breath nausea or vomiting Review of Systems General: Reports: 10 or more systems reviewed and unremarkable except in HPI and below Medications/Allergies Home Medications Medication Instructions Recorded Confirmed Last Taken Type aspirin 81 mg tablet,delayed 81 mg PO DAILY 01/16/20 11/17/22 11/10/22 History release (Adult Low Dose Aspirin) fluticasone propionate 50 1 spray intranasal DAILY #16 grams 04/24/20 11/17/22 11/17/22 Rx mcg/actuation nasal spray,suspension (Flonase Allergy Relief) budesonide-formoterol HFA 160 2 puff inhalation BID #10.2 grams 07/11/20 11/17/22 11/17/22 Rx mcg-4.5 mcg/actuation aerosol inhaler (Symbicort) albuterol sulfate 90 mcg/actuation See Rx Instructions .Route 08/19/20 11/17/22 11/17/22 Rx aerosol inhaler .COMPLEX ##18 montelukast 10 mg tablet 10 mg PO DAILY #30 tabs 08/28/20 11/17/22 11/17/22 Rx (Singulair) esomeprazole magnesium 40 mg 40 mg PO DAILY 01/26/21 11/17/22 11/24/22 History capsule,delayed release (Nexium) fluoxetine 40 mg capsule (Prozac) 40 mg PO DAILY 04/23/21 11/17/22 11/24/22 History HINGED KNEE BRACE #1 ea 06/14/22 11/11/22 Unknown Rx levothyroxine 150 mcg tablet 150 mcg PO DAILY #90 tabs 09/27/22 11/17/22 11/24/22 Rx meloxicam 15 mg tablet 15 mg PO DAILY 10/12/22 11/17/22 11/10/22 History olmesartan 40 1 tab PO DAILY 10/12/22 11/17/22 11/17/22 History mg-hydrochlorothiazide 12.5 mg tablet Allergies Allergy/AdvReac Type Severity Reaction Status Date / Time fentanyl Allergy Mild Hives Verified 11/17/22 12:48 meperidine [From Demerol] Allergy Mild Hives Verified 11/17/22 12:48 morphine Allergy Mild Hives Verified 11/17/22 12:48 amoxicillin Allergy Unknown Unknonwn Verified 11/17/22 12:48 PFSH Acute PFSH: Medical History Chronic cough GERD (gastroesophageal reflux disease) Hemoptysis, unspecified Hypothyroidism Palpitation Preoperative evaluation to rule out surgical contraindication Primary osteoarthritis of right knee Shortness of breath Family History Grandmother Cancer Breast CA Mother Heart disease Father Heart disease Diabetes Social History Smoking and tobacco status: former smoker Second hand smoke exposure: Yes Smoking risk assessment/counseling performed?: Yes Alcohol intake: current Alcohol intake frequency: holidays/special occasions only Lives independently: Yes Household members: spouse Marital status: Current occupational status: retired Pets and animals: Yes Current gender identity: Female Vitals/I&O/Wt Last Vital Signs Temp 97.8 F 11/24/22 06:20 Pulse 96 11/24/22 06:20 Resp 18 11/24/22 06:20 BP 131/76 11/24/22 06:20 Pulse Ox 92 11/24/22 06:20 O2 Del Method 11/24/22 06:20 Physical Exam Narrative: Obese body habitus there are no gross deformities of the hips or ankles. The range of motion of both hips and ankles are normal and no tenderness to palpation. Mild right knee joint effusion. Valgus deformity to the right knee that is correctable on stress examination slightly 10 degrees valgus.? Varus valgus stress shows no evidence of instability.? Negative Siria's.? Diffuse tenderness to palpation about the left knee particularly laterally.? Crepitance is felt with range of motion. There is patellafemoral crepitance as well. There is a negative lachmans test and both knees.? Competent MCL noted on valgus stress with endpoint. Data 11/17/22 13:08 11/17/22 13:08 Xray Ortho: My impression: X-rays 3 views the right knee reviewed in person interpreted by myself demonstrating no acute fracture dislocation.? Patient does have degenerative changes of the right knee most pronounced with [id number] arthritis and valgus collapse the lateral compartment.? Mild arthritic changes noted in the medial and patellofemoral joint. A&P Assessment and plan (1) Primary osteoarthritis of right knee: Plan Patient is here today after complete preoperative work-up and is cleared for surgery to proceed with a right total knee arthroplasty. Consent was reviewed and signed with patient. We once again detailed the risk benefits complication alternatives to surgical nonsurgical treatment options. Understanding her risk with surgery she elects to proceed with surgery today. We will have her admitted to the floor postoperatively. PT/OT DVT prophylaxis antibiotics weightbearing as tolerated. Plan will be for likely discharge tomorrow. Patient understands and agrees with current plan. All questions answered. Attestations Medical Necessity Statement*: Ongoing care right knee degenerative joint disease for right total knee arthroplasty Coding Level of Care Code Acute Code for Chg Fwd Diagnoses Primary osteoarthritis of right knee M17.11 Time Spent (min) 30
--- NOTE | 2022-11-24 07:02 | P.ANESUD_ITS ---
Pre-Anesthetic Update Pre-Anesthetic Assessment: Date of Surgery/Procedure: 11/24/22 Preop Sonal gnosis: Right knee degenerative joint disease Proposed Procedure: Operation Date: 11/24/22 07:55 Proposed Procedures p Right [place] 52[address], M25.569, M17.11(Right) - Jac Mae, DO Any changes to Pre-Anesthetic Assessment?: No Changes from Pre-Anesthetic Assessment: > 8hrs Last Intake: Intake Last Liquid Date 11/23/22 Last Liquid Time 22:30 Last Solid Date 11/23/22 Last Solid Time 19:00 Vitals: Temperature 97.8 F 11/24/22 06:20 Temperature Source Temporal Artery S can 11/24/22 06:20 Pulse Rate 96 11/24/22 06:20 Pulse Rhythm 11/24/22 06:20 Pulse Strength 3+ Normal 11/24/22 06:20 Respiratory Rate 18 11/24/22 06:20 Blood Pressure 131/76 11/24/22 06:20 Blood Pressure Lara n 94 11/24/22 06:20 Pulse Oximetry 92 11/24/22 06:20 Oxygen Delivery Me thod 11/24/22 06:20 Exam: Pre-Anes Outpt Exam: alert, oriented x 3, clear to auscultation bilater ally and regular rate & rhythm Cardiac Studies: Echocardiogram Ultrasound 03/04/20 Sestamibi Stress Test (Cardiology) 02/20
--- NOTE | 2022-11-24 07:02 | ANES.PROC ---
Anesthesia Procedures Procedure/Date: 11/24/22 Nerve Block ^: Nerve Block 1: Main Anesthesia: spinal anesthesia block Time Out Performed: Yes Consent: requested by attending/covering physician, from patient, risks and benefits reviewed and patient agrees to proceed Nerve block location: adductor canal (R) Anesthesia monitors applied: pulse oximetry, EKG, BP cuff and oxygen Nerve block position: supine Anesthetic Used: ropivicaine 0.5% (30 ml) and with decadron (4 mg) Ultrasound used to: recognize landmarks and visualize and ID femerol nerve Nerve Stimulator Used?: No Interscalene/Femoral BLK: 4 stimuplex 21 g needle used for position and inplane approach, visualize local anesthetic spread and no vascular puncture identified Injection: neg aspiration of heme Patient Tolerated Procedure: well and no complications
[2022-11-24] MEDS: sodium chloride 0.9% 1,000 ML 30 ML IV (07:15)
[2022-11-24] MEDS: clindamycin 600 MG/50 ML PREMIX 100 MG IV (08:11)
[2022-11-24] MEDS: tranexamic acid 1,000 mg/10mL SDV 1000 MG IV (08:28)
[2022-11-24] MEDS: EPINEPHrine 1 mg/mL INJ XX (09:22)
[2022-11-24] MEDS: tranexamic acid 1,000 mg/10mL SDV 1000 MG XX (09:22)
[2022-11-24] MEDS: ketorolac 30 mg/mL INJ XX (09:22)
--- NOTE | 2022-11-24 09:51 | SUR.OPER ---
Family Notified Of Patient's Status Via Phone.
--- NOTE | 2022-11-24 10:32 | P.OP_ITS ---
Brief Operative Note Date of procedure: 11/24/22 Pre-op diagnosis: Right knee degenerative joint disease valgus, failed conserv ative treatment Post-op diagnosis: same Procedure Done: Right total knee arthroplasty cemented?Sae robotic assisted Surgeon: Jac Mae Estimated blood loss (mL): 25 Complications: None Post-op Plan: Patient taken to PACU in stable condition recovering well pain controlled. Will be admitted to the floor postoperatively. Will receive appropriate pain medication, DVT prophylaxis, postoperative antibiotics TXA or work with PT/OT weightbearing as tolerated postoperative x-rays we will continue to monitor and follow patient plan for likely discharge tomorrow. Internal medicine consulted for medical management and assistance. Condition: stable Disposition: floor Coding Level of Care Code Acute Code for Geovanny Asif
--- NOTE | 2022-11-24 10:33 | PC.NURSE ---
pt arrived to PACU, sleepy but arousable, O2 at 6L/min via simple mask. Dressing to right knee C/D/I, right toes p/w/d, cap refill <3 seconds. pt has sensation below T10. Ice pack applied. SCD bilaterally in place and working properly.
--- NOTE | 2022-11-24 10:38 | PM.PACU ---
PACU note Narrative: Patient seen and evaluated in PACU recovering well pain controlled. Dressing on in place clean dry and intact. Spinal anesthesia still in effect unable to assess motor or sensory. Toes warm well-perfused distal pulses palpable. Exam: awake Disposition: admitted
--- NOTE | 2022-11-24 10:39 | PM.OP ---
Operative Report Date of procedure: November 24, 2022 Pre-op diagnosis: Preop Diagnosis Right knee degenerative joint disease Procedure: Post-op diagnosis: Same Procedure done: RIght total knee arthroplasty, cemented?robotic assisted Sae Implants: [employer] triathlon size 4 femur? CR cemented [place] triathlon size 3 tibia universal baseplate cemented Meena triathlon asymmetric patella size 32 mm Meena triathlon polyethylene 10 mm Surgeon: Jac Mae DO Estimated blood loss: 25 mL Tourniquet time: 62 minutes IV fluids: 1100 mL Urine output: 150mL Complications: None Condition: stable Disposition: floor Brief History: Perla is a pleasant 72-year-old female established in my practice with chronic right knee degenerative joint disease. pts has had injections that have failed conservative treatment..? We talked about continued conservative approach versus operative intervention for her right knee given the [id number] arthritis and tricompartmental degenerative changes would recommend a right total knee arthroplasty as she has failed conservative treatment.? Through shared decision making she would like to proceed with this. ? We talked about continued conservative treatment and surgical intervention as far as the risk benefits complications alternatives surgical and nonsurgical treatment options.? At this point time understanding pts risks with surgery pt agrees to proceed with surgical intervention.? Once again? risk with surgery include but are not limited to make it better make it worse blood clot, heart attack, stroke, on the table, infection, injury to nerves or vessels, persistent pain, arthrofibrosis, implant failure.? Understanding these risks he agrees to proceed with surgical intervention consent was obtained in the office.? All questions answered. Procedure: Patient was seen and evaluated in the preoperative holding area.? Consent was reviewed and signed with patient with plan for right total knee arthroplasty.? All questions answered.? Correct extremities marked.? Patient seen and evaluated by the anesthesia department and once cleared for surgery was taken back to the operative suite.? Patient was placed into a supine position on the OR table.? All bony prominences were well-padded.? Patient was appropriately secured to the bed.? Patient underwent anesthesia per the anesthesia department.? Patient received spinal anesthesia and Jonas catheter was placed.? A nonsterile tourniquet was applied to the right thigh.? At this point in time a final timeout performed.? Patient received appropriate preoperative antibiotics and TXA. Next the right lower extremity was then prepped and draped in standard orthopedic fashion.?Esmarch tourniquet was used exsanguinate the right lower extremity.? Tourniquet was insufflated to 300 mmHg. A standard anterior incision was made over midline of the knee.? Sharp scalpel excision through skin and subcutaneous tissue full-thickness skin flaps were made.? Fascia was elevated off of the extensor retinaculum was stable with medial parapatellar arthrotomy was then made.? The performed standard sequential releases with small medial releases patient had a valgus deformity. Visualization of all 3 compartments was found to have eburnated bone in all 3 compartments with osteophyte formation.? Most pronounced lateral joint space collapse with [id number] articulation.? Next the the patella was then stuffed laterally and the knee was then flexed.? Isidoro was placed superiorly and medial around the anterior aspect of the femur this was freed of synovium and I subsequently then placed by 2 femur pins to establish my femur arrays for the Sae robot.? These were then placed bicortically and? femur array was then appropriately secured with appropriate visualization.? Next attention was turned towards the tibial rays.? These were then drilled sequentially bicortically in parallel fashion and intraincisional.? I then placed my guide as well as my tibial array on in place.? This was appropriately secured and had excellent visualization with the Sae robot.? Next the tibial checkpoint as well as femur checkpoint were then placed.? At this point time I then subsequently established my head center as well as my medial lateral malleoli as well as my checkpoints.? Next utilizing standard Sae technology I then mapped out the appropriate points and confirmation points around the femur as well as the tibia in standard fashion.? Once this was then done I then removed all osteophytes in preparation for dynamic testing.? All osteophytes were removed as well as I removed the ACL and left the PCL intact.? Anterior horn of the lateral meniscus was excised.? At this point time the knee was brought into full extension and we performed our standard evaluation of our gap balancing stressing? ligaments and extension as well as flexion appropriate adjustments were made to have appropriate gap balancing in both flexion and extension.? Made appropriate adjustments for appropriate gap balancing altering our femoral and tibial cuts.? We get a preoperative plan evaluating our implants which was a size 4 femur and a size 3 tibia.? Next we brought in the [employer] robot and sequentially made our femur cuts.? All? bony cuts were then removed.? Finally we made our tibial cut.? Once this was done a standard PCL retractor was then placed into this position I excised the medial and lateral meniscus.? The tibial cut was then subsequently removed all excess bony debris was removed.?? I then utilized a lamina child support case officer and remove the posterior osteophytes.? At this point time sized the tibia and confirmed this was a size 3.? I utilized our blunt probe to establish rotation of tibial implant using [employer] robot technology.? Once this was done I then placed my tibia size 3 trial in appropriate position and then subsequently placed tibial pins to hold this into place placed a size 10 mm poly as well as a size 4 femur which was appropriately impacted in place knee was then subsequently brought into extension.? Patient was found to be balanced in extension.? Slight tightness flexion standard electrocautery release of the proximal portion of the PCL was performed off the femur this created a balanced flexion gap.? Plan was to use an ultracongruent poly at this point i was satisfied with varus valgus stress as well as extension with no hyperextension and no residual flexion deformity as patient was able achieve full extension and patient had appropriate flexion with symmetric gaps. .? Once this was done I had excellent balance gaps in flexion and extension with varus and valgus stresses.? At this point I was satisfied with these implants these were then verified and opened on the back table size 3 tibia, size 4 femur,? size 10 mm polythickness.? We did confirm appropriate gap balancing and stresses as well as alignment utilizing? Sae and were satisfied with this plan.? ?At this point time with my trials in place I then towel clip the patella everted this made appropriate measurements subsequently utilizing freehand technique performed by patellar resurfacing this was confirmed to be appropriate resection and subsequently sized to be a 32 mm asymmetric.? My drill peg guides were then clamped and appropriate position and appropriate position in the patella for appropriate tracking and parallel with the joint.? Pegs were drilled trial implant was placed and the knee was then subsequently ranged and found to have excellent patellar tracking.? Femur pegs were then drilled.? Satisfied with our tibial placement rotation I then utilized the keel punch and prepped the tibia.? At this point time all of our trial implants were removed.? All checkpoints as well as guidepins and arrays were removed and appropriate counts made.? The wound bed? was thoroughly irrigated and dried and prepped for cementation.? Cement was mixed on the back table.? Once cement was ready this was then covered onto the tibia and the tibial baseplate was then impacted and all excess cement was removed.? Next the polyethylene was then impacted into place on the tibial baseplate.? Next cement was placed onto the femur as well as under the femur implants and impacted in to place and all excess cement was extruded.? Knee was taken into full extension? to clear all excess cement was removed.? Warm saline was placed over the joint.? I then towel clip patella and dried for cementation. cemented the patella into place.? This was all clamped and the cement was allowed to cure.? Thorough irrigation performed with pulse lavage.? I then placed my periarticular injection while the cement was curing.? Once cured the knee was taken through range of motion and had excellent stability and gaps balances.? Tourniquet was then deflated.? Once tourniquet was deflated hemostasis satisfactory with electrocautery.? Next I then subsequently closed the capsule with Ethibond suture as well as a running strata fix suture.? Knee was then taken through range of motion 30 times.? Next the skin was then closed in layered fashion of running stratifix sutures of deep ans subcutenous tissue and skin.? Patient was closed in flexion with heather for skin.? Incision was covered with OpSite, ABDs soft roll and Brayden wrap.? Patient was then awakened from anesthesia and taken to PACU in stable condition. Disposition: Patient taken to PACU in stable condition will be admitted to the floor for pain control PT/OT weight-bear as tolerated right lower extremity dressing changes as needed, DVT prophylaxis.?Pain control. Patient will receive appropriate postoperative antibiotics. patient will be seen today by the internal medicine team for medical management.? Patient will follow up with the office in 2 weeks.? Patient understands agrees with current plan.? All questions answered.
--- NOTE | 2022-11-24 10:43 | XR_ITS ---
WS: [id number] Right knee, 3 views, 11/24/2022 Clinical Data: Postop right TKA Comparison: AP knees, right knee, 09/27/2022 Findings: The right knee arthroplasty components are in good position. There is air in the joint space from the recent surgery. There are anterior surgical heather. XR/XR knee RT 3V* [id number] Impression: Right knee arthroplasty
[2022-11-24] MEDS: lactated ringers 1,000 ML 100 ML IV ×2 (12:49→23:53)
[2022-11-24] MEDS: chlorhexidine gluconate 0.12% Btl 473 mL 30 ML MUCOUS MEM ×3 (12:49→22:49)
--- NOTE | 2022-11-24 13:55 | PM.CONSULT ---
Providers/Reason For Consult Consulting Physician/Specialty*: Yonatan Schreiber MD Reason for Consult*: MEdical management. Requesting Physician: Dr. 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 She underwent this procedure for significant degenerative joint disease. Procedure took place this morning, without complication. I am asked to evaluate the patient for continuation of her home medication. She reports her pain is under control currently, and she has no significant concerns. Review of Systems General: Reports: 10 or more systems reviewed and unremarkable except in HPI and below Resp: Denies: dyspnea GI: Denies: hematochezia or melena Medications/Allergies Home Medications Medication Instructions Recorded Confirmed Last Taken Type aspirin 81 mg tablet,delayed 81 mg PO DAILY 01/16/20 11/17/22 11/10/22 History release (Adult Low Dose Aspirin) fluticasone propionate 50 1 spray intranasal DAILY #16 grams 04/24/20 11/17/22 11/17/22 Rx mcg/actuation nasal spray,suspension (Flonase Allergy Relief) budesonide-formoterol HFA 160 2 puff inhalation BID #10.2 grams 07/11/20 11/17/22 11/17/22 Rx mcg-4.5 mcg/actuation aerosol inhaler (Symbicort) albuterol sulfate 90 mcg/actuation See Rx Instructions .Route 08/19/20 11/17/22 11/17/22 Rx aerosol inhaler .COMPLEX ##18 montelukast 10 mg tablet 10 mg PO DAILY #30 tabs 08/28/20 11/17/22 11/17/22 Rx (Singulair) esomeprazole magnesium 40 mg 40 mg PO DAILY 01/26/21 11/17/22 11/24/22 History capsule,delayed release (Nexium) fluoxetine 40 mg capsule (Prozac) 40 mg PO DAILY 04/23/21 11/17/22 11/24/22 History HINGED KNEE BRACE #1 ea 06/14/22 11/11/22 Unknown Rx levothyroxine 150 mcg tablet 150 mcg PO DAILY #90 tabs 09/27/22 11/17/22 11/24/22 Rx meloxicam 15 mg tablet 15 mg PO DAILY 10/12/22 11/17/22 11/10/22 History olmesartan 40 1 tab PO DAILY 10/12/22 11/17/22 11/17/22 History mg-hydrochlorothiazide 12.5 mg tablet oxycodone-acetaminophen 5 mg-325 1 tab PO Q6H PRN pain, 11/24/22 Unknown Rx mg tablet (Percocet) postoperative pain 7 days #28 tabs Allergies Allergy/AdvReac Type Severity Reaction Status Date / Time fentanyl Allergy Mild Hives Verified 11/17/22 12:48 meperidine [From Demerol] Allergy Mild Hives Verified 11/17/22 12:48 morphine Allergy Mild Hives Verified 11/17/22 12:48 amoxicillin Allergy Unknown Unknonwn Verified 11/17/22 12:48 Current Medications Generic Name Dose Route Start Last Admin Trade Name Freq PRN Reason Stop Dose Admin Chlorhexidine Gluconate 30 ml 11/24/22 13:00 11/24/22 12:49 Chlorhexidine Gluconate 0.12% Btl 473 Ml MUCOUS MEM 30 ml QID TONIA Administration Acetaminophen 1,000 mg in 100 mls @ 400 mls/hr 11/24/22 14:30 11/24/22 13:18 Acetaminophen IV 11/25/22 06:44 400 mls/hr Q8H TONIA Administration Lactated Ringer's 1,000 mls @ 100 mls/hr 11/24/22 11:34 11/24/22 12:49 Lactated Ringers IV 100 mls/hr .Q10H TONIA Administration PFSH Acute PFSH: Medical History (Updated 11/24/22 @ 14:13 by Yonatan Schreiber MD) Chronic cough GERD (gastroesophageal reflux disease) Hemoptysis, unspecified Hypertension Hypothyroidism Palpitation Preoperative evaluation to rule out surgical contraindication Primary osteoarthritis of right knee Shortness of breath Thyroid cancer Surgical History (Updated 11/24/22 @ 14:11 by Yonatan Schreiber MD) History of thyroid surgery S/P bilateral breast reduction S/P spinal fusion Family History Grandmother Cancer Breast CA Mother Heart disease Father Heart disease Diabetes Social History Smoking and tobacco status: former smoker Second hand smoke exposure: Yes Smoking risk assessment/counseling performed?: Yes Alcohol intake: current Alcohol intake frequency: holidays/special occasions only Lives independently: Yes Household members: spouse Marital status: Current occupational status: retired Pets and animals: Yes Current gender identity: Female Vitals/I&O/Wt Last Vital Signs Temp 97.4 F L 11/24/22 11:13 Pulse 77 11/24/22 12:05 Resp 16 11/24/22 12:05 BP 121/76 11/24/22 12:05 Pulse Ox 90 11/24/22 12:05 O2 Del Method 11/24/22 12:05 O2 Flow Rate 3 11/24/22 12:05 11/23/22 11/24/22 11/24/22 22:59 06:59 14:59 Intake Total 2275.5 / 2275.5 Output Total 175 / 175 Balance 2100.5 / 2100.5 Weight last 48 hrs Weight 107.048 kg Physical Exam Narrative: General exam is white female, conversant and pleasant on 3 L of oxygen in no distress HEENT: Pupils equally round. Neck is supple no lymphadenopathy thyromegaly Cardiovascular regular rate and rhythm, no murmur Lungs clear no wheezing or crackles Abdomen is soft, positive bowel sounds. No obvious organomegaly exam is deferred, Jonas noted Extremities no cyanosis clubbing or edema, Brayden bandage with dressing right leg Skin no obvious rash Neuro no obvious focal deficits Urinary Catheter Management: Jonas: Cath Placed During This Visit: yes Urinary Catheter Date of Insertion: 11/24/22 Urinary Catheter Time of Insertion: 08:20 Data 11/17/22 13:08 11/17/22 13:08 A&P Assessment and plan (1) Primary osteoarthritis of right knee: She is directly postoperative right knee arthroplasty and appears to be doing well. Eliquis has been added for DVT prophylaxis by surgeon which is appropriate Rehabilitation services are consulted. CBC and BMP is ordered for tomorrow to check for postoperative anemia, and electrolytes that she has been placed on IV fluids (2) Hypertension: We will initiate her home medication. Monitoring her blood pressure per regular vital intervals (3) Allergic asthma due to [place] house dust mite: Provide budesonide twice daily, DuoNeb as needed. Alternative could be using her home medications (4) Hypothyroidism: Continue thyroid hormone at current dose. No need to check TSH currently Qualifiers: Hypothyroidism type: unspecified Qualified Code(s): E03.9 - Hypothyroidism, unspecified Plan Other medical problems as outlined in past medical history Thank you for this consultation Consult Attestations Medical Necessity Statement: As per primary Diagnoses Primary osteoarthritis of right knee M17.11 Hypertension I10 Allergic asthma due to [place] house dust mite J45.909 Hypothyroidism E03.9 Hypothyroidism type: unspecified Time Spent (min) 25
--- NOTE | 2022-11-24 14:44 | ANE.PACU2 ---
Inpatient post-anesthesia follow up: Airway intact: Yes Vital signs: Temperature 97.4 F Pulse Rate 88 Respiratory Rate 16 Blood Pressure 121/76 Pulse Oximetry 94 Oxygen Delivery Me thod Nasal Cannula Oxygen Flow Rate 3 Fraction of Inspir ed Oxygen Hydration adequate: Yes Nausea and vomiting: No Pain level: 1 Mental status: Baseline
[2022-11-24] MEDS: clindamycin 900 MG/50 ML PREMIX 100 MG IV ×2 (16:09→23:40)
[2022-11-24] MEDS: TRAMadol 50 mg Tablet PO (16:17)
[2022-11-24] MEDS: calcium carb-vit d 600mg/400unit 1 Tablet 1 EACH PO (17:18)
[2022-11-24] MEDS: iron polysaccharide complex 150 mg Capsule PO (17:18)
[2022-11-24] MEDS: docusate sodium 100 mg Capsule PO (17:18)
[2022-11-24] MEDS: mupirocin oint 22 gm 1 APPLIC NASAL (17:18)
[2022-11-24] MEDS: oxyCODONE 5 mg IR Tab/Cap PO (22:49)
[2022-11-24] MEDS: HYDROmorphone 1 mg/mL INJ 1 mL 0.5 MG IVP (23:53)
[2022-11-25] VITALS (12 sets, daily range): BP systolic 119–158; BP diastolic 69–83; PULSE 82–94; RESP 16–20; TEMP 36.6–36.8; O2SAT 90–93
[2022-11-25 05:10] LABS: Basophils % 0.1 %; Eosinophils % 0.2 %; Hematocrit 34.5 % (37.0-47.0); Hemoglobin 11.2 g/dL (11.5-15.3); Lymphocytes # 0.4 10^3/uL (0.8-4.8); Mean Corpuscular HGB Conc 32.5 g/dL (30.0-36.0); Mean Corpuscular Hemoglobin 31.6 pg (28.0-34.0); Mean Corpuscular Volume 97.5 fl (81-99); Mean Platelet Volume 10.5 fL (7.4-10.4); Monocytes # 0.6 10^3/uL (0.2-0.9); Monocytes % 4.2 %; Neutrophils % 92.3 %; Nucleated Red Blood Cells % 0 %; Platelet Count 170 10^3/cmm (130-400); Red Blood Count 3.54 10^6/uL (4.1-5.3); Red Cell Distribution Width 13.2 % (12.1-15.1); White Blood Count 14.4 10^3/uL (4.0-10.0)
[2022-11-25 05:27] LABS: Blood Urea Nitrogen 19 mg/dL (8-23); Calcium 7.9 mg/dL (8.5-10.5); Carbon Dioxide 19 mmol/L (22-29); Chloride 104 mmol/L (98-107); Glomerular Filtration Rate 61.9 mL/min (90-130); Glucose 117 mg/dL (65-115); Osmolality Calculated 285 mOsm/kg (285-295); Sodium 136 mmol/L (136-145)
[2022-11-25 05:33] LABS: Anion Gap 17.4 (5-19); Potassium 4.4 mmol/L (3.5-5.1)
[2022-11-25] MEDS: acetaminophen 1,000 MG/100 ML PIGGYBACK 400 MG IV (05:56)
[2022-11-25] MEDS: oxyCODONE 5 mg IR Tab/Cap PO ×3 (06:01→14:23)
[2022-11-25] MEDS: budesonide 0.5 mg/2 mL Neb INHALATION (08:28)
[2022-11-25] MEDS: lactated ringers 1,000 ML 100 ML IV (08:51)
[2022-11-25] MEDS: iron polysaccharide complex 150 mg Capsule PO (08:52)
[2022-11-25] MEDS: calcium carb-vit d 600mg/400unit 1 Tablet 1 EACH PO (08:53)
[2022-11-25] MEDS: pantoprazole DR 40 mg Tablet PO (08:53)
[2022-11-25] MEDS: aspirin 81 mg EC Tablet PO (08:53)
[2022-11-25] MEDS: levothyroxine 150 mcg Tablet PO (08:53)
[2022-11-25] MEDS: multivitamin therapeutic Tablet 1 TAB PO (08:54)
[2022-11-25] MEDS: fluoxetine 20 mg Capsule 40 MG PO (08:54)
[2022-11-25] MEDS: apixaban 5 mg Tablet 2.5 MG PO (08:54)
[2022-11-25] MEDS: montelukast sodium 10 mg Tablet PO (08:54)
[2022-11-25] MEDS: chlorhexidine gluconate 0.12% Btl 473 mL 30 ML MUCOUS MEM ×2 (08:55→12:55)
[2022-11-25] MEDS: mupirocin oint 22 gm 1 APPLIC NASAL (08:55)
--- NOTE | 2022-11-25 08:56 | P.PN_ITS ---
Subjective Subjective: Stephanie reports she is doing well. Did require a little bit of oxygen last night. Pain under fair control. Up ambulating today. Medications: Reviewed: Yes Vitals/I&O/Wt Last Vital Signs Temp 98.2 F 11/25/22 07:48 Pulse 85 11/25/22 08:34 Resp 16 11/25/22 08:00 BP 122/71 11/25/22 08:53 Pulse Ox 90 11/25/22 08:00 O2 Del Method 11/25/22 08:00 O2 Flow Rate 2 11/25/22 04:00 11/24/22 11/25/22 11/25/22 22:59 06:59 14:59 Intake Total 1500 / 3775.5 250 / 4025.5 896.667 / 896.667 Output Total 1150 / 1325 Balance 350 / 2450.5 250 / 2700.5 896.667 / 896.667 Weight last 48 hrs Weight 107.048 kg Physical Exam Narrative: General exam is white female, no distress, oxygen level greater than 90 after rehabilitation walk Cardiovascular regular rate and rhythm, no murmur Lungs clear no wheezing or crackles Urinary Catheter Management: Jonas: Cath Placed During This Visit: yes, but has since been removed by the nurse Reason for Continuing Indwelling Catheter: Perioperative Use in Selected Surgeries Urinary Catheter Date of Insertion: 11/24/22 Urinary Catheter Time of Insertion: 08:20 Date Urinary Catheter Removed: 11/25/22 Time Urinary Catheter Discontinued: 06:07 Data 11/25/22 04:28 11/25/22 04:28 A&P Assessment and plan (1) Primary osteoarthritis of right knee: She is postoperative day #1 right knee arthroplasty and appears to be doing well. Eliquis has been added for DVT prophylaxis by surgeon which is appropriate Rehabilitation services are consulted. She will likely be discharged today (2) Hypertension: Home medication was initiated (3) Allergic asthma due to [place] Citizen house dust mite: Provide budesonide twice daily, DuoNeb as needed. Alternative could be using her home medications (4) Hypothyroidism: Continue thyroid hormone at current dose. No need to check TSH currently Qualifiers: Hypothyroidism type: unspecified Qualified Code(s): E03.9 - Hypot hyroidism, unspecified Plan Other medical problems as outlined in past medical history No further recommendations at this time Attestations Medical Necessity Statement*: As per primary Diagnoses Primary osteoarthritis of right knee M17.11 Hypertension I10 Allergic asthma due to [place] Citizen house dust mite J45.909 Hypothyroidism E03.9 Hypothyroidism type: unspecified Time Spent (min) 19
[2022-11-25] MEDS: clindamycin 900 MG/50 ML PREMIX 100 MG IV (08:58)
--- NOTE | 2022-11-25 10:59 | PC.CHAP ---
Pastoral Care Encounter/Spiritual Assessment Type of Contact [] Declined coastal and estuary specialist visit [] Patient/Family/Request visit [] Outpatient visit [] Follow-up visit [] Physician referral [] Code/Alert [x] Routine visit [] Staff referral [] Actively dying [] Patient sleeping [] Family support [] [] Out of room [] Palliative care [] [x] Receiving care in room [] Pre-surgical visit [] Trauma [] Long length of stay [] ICU visit [] Other: Relational/Emotional Strength [x] Patient feels connected with others/family/visitors/staff [] Distress [] Loneliness/isolation [] Abandonment Spirituality of Patient [x] Person of Violeta [] Attends Oriental Orthodox of their Violeta [x] Believes in Prayer [] Reads Bible or Worship materials [] There are Spiritual issues to be addressed Window Clerk Interventions [x] Prayer [x] Active listening [x] Non-anxious presence [x] Spiritual/emotional support [] Crisis/trauma care [x] Spiritual counseling [] Bereavement support [] Provided bereavement packet [] Provided Bible/devotional materials [] Provided toy/stuffed animal, coloring book to patient or family member [] Provided Communion [] Anointing/[place] [] Salvation [x] Completed spiritual assessment [] Other: Impact on Illness or Injury [] Angry [] Fearful [] Anxious [] Often cries [] Exhaustion [] Unable to work [] Unable to attend restorationism [] Unable to walk/stand [] Unable to read [] Unable to drive [] Unable to eat/drink [] Unable to sleep [] Unable to be with family [] Patient intubated [] Other: Summary not sure about her health at this point will be going home Time spent with patient 10 mins
[2022-11-25] MEDS: vancomycin 1,500 MG/300 ML PIGGYBACK 200 MG IV (11:10)
[2022-11-25] MEDS: HYDROmorphone 1 mg/mL INJ 1 mL 0.5 MG IVP (15:45)
--- NOTE | 2022-11-25 16:11 | PM.DCS ---
Discharge Providers Date of Admission: 11/24/22 10:35 Date of Discharge: November 25, 2022 Attending Provider at Admission: Jac Mae DO Attending Provider at Discharge: Jac Mae DO Consults: Hospitalist Primary Care Provider: CELESTINO Quintana Diagnoses at Discharge Discharge Diagnosis (1) Primary osteoarthritis of right knee: Status: Resolved (2) Hypertension: Status: Acute (3) Allergic asthma due to [place] house dust mite: Status: Acute (4) Hypothyroidism: Status: Acute Qualifiers: Hypothyroidism type: unspecified Qualified Code(s): E03.9 - Hypothyroidism, unspecified Reason for Visit Reason for Visit: Right knee degenerative joint disease Hospital Course Hospital Course Patient was subsequently brought into the hospital through the preoperative holding area with plan for a right total knee arthroplasty. Once cleared by anesthesia she was taken back to the operative suite underwent a right total knee arthroplasty without any complications. She was taken PACU in stable condition and recovered appropriately and was subsequently admitted to the floor. Internal medicine was consulted for assistance with medical management. Patient received appropriate perioperative antibiotics DVT prophylaxis TXA pain control as well as labs were monitored postoperatively. She was weightbearing as tolerated to the right lower extremity and work with PT/OT. Dressing was changed and maintained as needed. Throughout her hospitalization she did require nasal cannula O2 saturation which she does have lower O2 saturations secondary to her chronic asthma that lives in the 90?92. She was assessed for home eval per the recommendation of the hospitalist team. It was determined on postoperative day 1 she progressed well postoperatively that she was stable for discharge from an orthopedic standpoint as well as hospitalist standpoint. She received appropriate discharge instructions as well as pain medication and DVT prophylaxis as well as a home O2 evaluation. Plan will be for her to follow-up with Dr. Mae in the office in 2 weeks postoperatively. She understands she has any questions or concerns and contact the office. Physical Exam Narrative: Examination of the right lower extremity demonstrates dressing on in place clean dry and intact. Distal pulses are palpable. Toes are warm and well-perfused. Sensation intact light touch distally. She is able to wiggle toes plantarflex and dorsiflex ankle. She is able to extend her knee from 0 and flex to 75 degrees. Calves are soft and nontender compartments soft and compressible. Urinary Catheter Management: Jonas: Cath Placed During This Visit: yes, but has since been removed by the nurse Reason for Continuing Indwelling Catheter: Perioperative Use in Selected Surgeries Urinary Catheter Date of Insertion: 11/24/22 Urinary Catheter Time of Insertion: 08:20 Date Urinary Catheter Removed: 11/25/22 Time Urinary Catheter Discontinued: 06:07 Discharge Data Studies Completed and Pending Completed Studies During Hospitalization Category Date Time Status XR knee RT 3V* [id number] Stat Exams 11/24/22 10:43 Completed Pending at discharge Category Date Time Status Basic Metabolic Panel AM LABS Lab 11/26/22 04:00 Ordered Basic Metabolic Panel AM LABS Lab 11/27/22 04:00 Ordered Complete Blood Count w/Auto AM LABS Lab 11/26/22 04:00 Ordered Complete Blood Count w/Auto AM LABS Lab 11/27/22 04:00 Ordered Radiology Impressions Knee X-Ray 11/24/22 10:43 Impression: Right knee arthroplasty Laboratory Results WBC 14.4 10^3/uL (4.0-10.0) H 11/25/22 04:28 RBC 3.54 10^6/uL (4.1-5.3) L 11/25/22 04:28 Hgb 11.2 g/dL (11.5-15.3) L 11/25/22 04:28 Hct 34.5 % (37.0-47.0) L 11/25/22 04:28 MCV 97.5 fl (81-99) 11/25/22 04:28 MCH 31.6 pg (28.0-34.0) 11/25/22 04:28 MCHC 32.5 g/dL (30.0-36.0) 11/25/22 04:28 RDW 13.2 % (12.1-15.1) 11/25/22 04:28 Plt Count 170 10^3/cmm (130-400) 11/25/22 04:28 MPV 10.5 fL (7.4-10.4) H 11/25/22 04:28 Neut % (Auto) 92.3 % 11/25/22 04:28 Lymph % (Auto) 3.0 % 11/25/22 04:28 Webb % (Auto) 4.2 % 11/25/22 04:28 Eos % (Auto) 0.2 % 11/25/22 04:28 Baso % (Auto) 0.1 % 11/25/22 04:28 Neut # (Auto) 13.30 10^3/uL (1.8-7.7) H 11/25/22 04:28 Lymph # (Auto) 0.4 10^3/uL (0.8-4.8) L 11/25/22 04:28 Webb # (Auto) 0.6 10^3/uL (0.2-0.9) 11/25/22 04:28 Eos # (Auto) 0.0 10^3/uL (0.0-0.8) 11/25/22 04:28 Baso # (Auto) 0.0 10^3/uL (0.0-0.1) 11/25/22 04:28 Nucleated RBC % (auto) 0 % 11/25/22 04:28 Nucleated RBCs # 0.0 /100WBC 11/25/22 04:28 Sodium 136 mmol/L (136-145) 11/25/22 04:28 Potassium 4.4 mmol/L (3.5-5.1) 11/25/22 04:28 Chloride 104 mmol/L (98-107) 11/25/22 04:28 Carbon Dioxide 19 mmol/L (22-29) L 11/25/22 04:28 Anion Gap 17.4 (5-19) 11/25/22 04:28 BUN 19 mg/dL (8-23) 11/25/22 04:28 Creatinine 0.9 mg/dL (0.5-0.9) 11/25/22 04:28 GFR Calculation 61.9 mL/min (90-130) L 11/25/22 04:28 Glucose 117 mg/dL (65-115) H 11/25/22 04:28 Calculated Osmolality 285 mOsm/kg (285-295) 11/25/22 04:28 Calcium 7.9 mg/dL (8.5-10.5) L 11/25/22 04:28 Urine Color Yellow (Yellow) 11/17/22 13:08 Urine Appearance Clear (CLEAR) 11/17/22 13:08 Urine pH 6 (5-7) 11/17/22 13:08 Ur Specific [place] 1.020 (1.005-1.030) 11/17/22 13:08 Urine Protein Neg (Negative) 11/17/22 13:08 Urine Glucose (UA) Norm (Normal) 11/17/22 13:08 Urine Ketones Negative (Negative) 11/17/22 13:08 Urine Blood Neg (Negative) 11/17/22 13:08 Urine Nitrate Negative (Negative) 11/17/22 13:08 Urine Bilirubin Neg (Negative) 11/17/22 13:08 Urine Urobilinogen Norm mg/dL (Negative) 11/17/22 13:08 Ur Leukocyte Esterase Negative (Negative) 11/17/22 13:08 Blood Type B Positive 11/17/22 13:08 Rho(D) Type Positive 11/17/22 13:08 Antibody Screen Negative 11/17/22 13:08 Vitals Last Vital Signs Temp 97.9 F 11/25/22 15:36 Pulse 89 11/25/22 15:36 Resp 18 11/25/22 15:45 BP 158/83 11/25/22 15:36 Pulse Ox 92 11/25/22 15:45 O2 Del Method 11/25/22 08:00 O2 Flow Rate 2 11/25/22 08:00 Discharge Plan Discharge Patient Disposition: Home Condition: Stable Prescriptions: New Eliquis 2.5 mg tablet 2.5 mg PO BID 14 Days Qty: 28 0RF Colace 100 mg capsule 100 mg PO DAILY PRN (Reason: constipation) 10 Days Qty: 10 0RF Percocet 5-325 mg tablet 1 tab PO Q6H PRN (Reason: pain, postoperative pain) 7 Days Qty: 28 0RF Continued aspirin [Adult Low Dose Aspirin] 81 mg tablet,delayed release (DR/EC) 81 mg PO DAILY fluticasone propionate [Flonase Allergy Relief] 50 mcg/actuation spray,suspension 1 spray INTRANASAL DAILY Qty: 16 3RF Rx Instructions: administer into each nostril budesonide-formoterol [Symbicort] 160-4.5 mcg/actuation HFA aerosol inhaler 2 puff INHALATION BID Qty: 10.2 3RF esomeprazole magnesium [Nexium] 40 mg capsule,delayed release(DR/EC) 40 mg PO DAILY fluoxetine [Prozac] 40 mg capsule 40 mg PO DAILY levothyroxine 150 mcg tablet 150 mcg PO DAILY Qty: 90 2RF Rx Instructions: 150 mcg Tue-Tuesday, half a tab on Tuesday albuterol sulfate 90 mcg/actuation HFA aerosol inhaler See Rx Instructions .ROUTE .COMPLEX Qty: 18 0RF Dose Instruction: INHALE 1 PUFF BY MOUTH 4 TIMES DAILY NEEDED FOR SHORTNESS OF BREATH OR WHEEZING Rx Instructions: INHALE 2 PUFFs BY MOUTH 4 TIMES DAILY NEEDED FOR SHORTNESS OF BREATH OR WHEEZING montelukast [Singulair] 10 mg tablet 10 mg PO DAILY Qty: 30 3RF olmesartan-hydrochlorothiazide 40-12.5 mg tablet 1 tab PO DAILY Discontinued meloxicam 15 mg tablet 15 mg PO DAILY Rx Instructions: TAKE ONE TABLET BY MOUTH ONCE DAILY No Action (DME) HINGED KNEE BRACE See Rx Instructions .Route .MEDSUPPLY Qty: 1 0RF Rx Instructions: As directed Discharge Orders: Discharge Order (Routine); Ordered 11/25/22 Ordered By: Jac Mae Other Ambulatory Orders: Physical Therapy Eval and Treat Outpatient (Order) Timeframe: 3 Days Facility: [facility] - Location: Physical Therapy Ordered By: Yonatan Roche [place] Referrals: Jac Mae, [Physician] - 12/09/22 3:30 pm Discharge Diet: Advance as tolerated Discharge Activity: Increase activity as tolerated Patient Instructions: Oxycodone/Acetaminophen (By mouth), Laxative, Stool Softeners (By mouth), Apixaban (By mouth), Knee Replacement (GEN), Opioid Safety Activity Restrictions/Additional Instructions: Orthopedic discharge instructions: Patient should leave dressing on in place for 3 days postoperatively may remove incision okay to shower pat incision dry and redress with a dry dressing. No baths or soaks Knee range of motion as tolerated Weightbearing as tolerated to the right lower extremity Take pain medication as prescribed Take antinausea medication as needed Take Eliquis (blood thinner) as prescribed for blood clot prevention Follow-up with primary care provider Ice and elevate as needed Follow-up with Dr. Mae in the office in 2 weeks Contact the office for any questions or concerns Discharge Attestations Time Spent in Discharge Care*: greater than 30 min Quality Metrics Clinical Quality Measures [ No reported AMI, CVA or VTE this stay] Coding Level of Care Code Acute Code for Chg Fwd Diagnoses Primary osteoarthritis of right knee M17.11 Hypertension I10 Allergic asthma due to [place] house dust mite J45.909 Hypothyroidism E03.9 Hypothyroidism type: unspecified
== END 2022-11-25 18:12 | disposition home or self-care (01) ==
LOC: MEDSURG 10:36
PROVIDERS: Admitting Provider Student in an Organized Health Care Education/Training Program; PCP Nurse Practitioner; Visit Provider Student in an Organized Health Care Education/Training Program
PROC: 8E0Y0CZ Robotic Assisted Procedure of Lower Extremity, Open Approach (ICD-10-PCS; CPT 27447; principal; 2022-11-24 07:55)
DX: M17.11 Unilateral primary osteoarthritis, right knee (principal); K21.9 Gastro-esophageal reflux disease without esophagitis; E03.9 Hypothyroidism, unspecified; Z87.891 Personal history of nicotine dependence; I10 Essential (primary) hypertension; Z79.82 Long term (current) use of aspirin; Z79.51 Long term (current) use of inhaled steroids
CPT/HCPCS: 27447; 36415; 51702; 73562; 80048; 81003; 85025; 86850; 86900; 94640; 97116; 97161; 97165; 97530; C1776; G0378; J0131; J0171; J1100; J1170; J1885; J2250; J2704; J2795; J3370; J3490; J7030; J7120; J7626

== ENCOUNTER 2022-11-29 06:00 | Outpatient (RCR) | payer BC, SELFPAY | END 2022-12-17 23:59 | disposition home or self-care (01) | LOC: GPT 06:00 | PROVIDERS: Visit Provider Internal Medicine | DX: M17.11 Unilateral primary osteoarthritis, right knee (principal) | CPT/HCPCS: 97110; 97112; 97140; 97161; 97530; G0283 ==

== ENCOUNTER → 2022-12-09 15:58 | Outpatient (BNVA) | payer BC, SELFPAY | PROVIDERS: Visit Provider Student in an Organized Health Care Education/Training Program | DX: Z96.651 Presence of right artificial knee joint (principal) | CPT/HCPCS: 73560; 73565 ==

== ENCOUNTER 2022-12-18 06:00 | Outpatient (RCR) | payer BC, SELFPAY | END 2023-01-16 23:59 | disposition home or self-care (01) | LOC: GPT 06:00 | PROVIDERS: Visit Provider Internal Medicine | DX: M17.11 Unilateral primary osteoarthritis, right knee (principal) | CPT/HCPCS: 97110; 97140; 97535 ==

== ENCOUNTER 2023-01-25 10:21 | Outpatient (CLI) | payer BC, SELFPAY ==
--- NOTE | 2023-01-25 10:56 | MM_ITS ---
WS: [id number] . BILATERAL SCREENING DIGITAL TOMOSYNTHESIS MAMMOGRAM WITH CAD HISTORY: SCREENING COMPARISON: 01/20/2022, 07/07/2020 Bilateral CC and MLO views with tomosynthesis and synthetic mammography submitted. Computer aided det ection analyzed. Breast composition: There are scattered areas of fibroglandular density. No suspicious masses, microc alcifications or architectural distortion. Benign calcifications in each breast. MM/[place] [id number] IMPRESSION: BI-RADS: 2-Benign FOLLOW UP: 1 Year Follow-up
== END 2023-01-25 10:22 | disposition home or self-care (01) ==
PROVIDERS: PCP Nurse Practitioner; Visit Provider Nurse Practitioner
DX: Z12.31 Encounter for screening mammogram for malignant neoplasm of breast (principal)
CPT/HCPCS: 77063; 77067

== ENCOUNTER 2023-06-01 14:37 | Outpatient (CLI) | payer BC, SELFPAY ==
--- NOTE | 2023-06-01 14:44 | XR_ITS ---
WS: [id number] Exam: XR lumbar spine f/e only [id number] Date/Time of Exam: 06/01/2023 3:00 PM Reason For Exam: LOW BACK PAIN/ARTHRODESIS STATUS Posterior fusion of the spine noted at the L4-5 level with pedicle screws and posterior rods. There i s anterolisthesis of L4 on L5 of about 7.5 mm. This does not change between flexion or extension. No other sign of flexion or extension instability. Degenerative disc change at all levels and mild spond ylosis. Facet arthropathy at all levels. Prominent posterior osteophyte projects from the lower endpl ate of L2 and might cause some spinal canal stenosis at this level. IMPRESSION: 1. No flexion or extension instability. 2. 7.5 mm anterolisthesis of L4 on L5 that does not change between flexion or extension. 3. Moderately advanced degenerative changes as detailed above.
== END 2023-06-01 14:38 | disposition home or self-care (01) ==
PROVIDERS: PCP Nurse Practitioner; Visit Provider Nurse Practitioner
DX: M47.896 Other spondylosis, lumbar region (principal); M54.50 Low back pain, unspecified
CPT/HCPCS: 72120

== ENCOUNTER 2023-06-30 14:13 | Outpatient (CLI) | payer BC, SELFPAY ==
--- NOTE | 2023-06-30 14:20 | MR_ITS ---
WS: [id number] MRI LUMBAR SPINE NONCONTRAST TECHNIQUE: Sagittal T1, T2 and STIR imaging. Axial T1 and T2 imaging. CLINICAL INFORMATION: ANTEROLISTHESIS OF LUMBAR SPINE COMPARISON: MRI 2014 FINDINGS: Mild lumbar curve. No acute compression. Grade 1 anterolisthesis L4 on L5. Disc bulging worse at L2-L 3 and L3-L4. Pedicle screw fixation L4-5. Small central protrusion T12-L1. Moderate central canal stenosis L2-3 progressed compared to 2014. Mild central canal stenosis L3-4 whyte s progressed. L1-L2: Minimal disc bulging. Moderate facet arthropathy. Mild LEFT greater than RIGHT foraminal narro wing. L2-L3: Shallow central protrusion L2-3 with moderate central canal stenosis. Impingement traversing L 3 nerve roots bilaterally. Moderate facet arthropathy. Mild bilateral foraminal narrowing. L3-L4: Mild annular bulging. Mild central canal stenosis. Impingement traversing L4 nerve roots bilat erally. Moderate to advanced facet arthropathy. Mild LEFT foraminal narrowing. Impingement traversing LEFT L4 nerve root. L4-L5: Grade 1 anterolisthesis. Mild RIGHT and no significant LEFT foraminal narrowing. Spinal canal is patent. Laminectomy defects. L5-S1: Prior postoperative changes pedicle screw fixation. Ankylosis L5-S1 disc space. Spinal canal a nd foramen are patent. Moderate facet arthropathy. Clumping of the cauda equina nerve rootlets at L4-5 compatible with arachnoiditis. This is similar in appearance to 2014. Visualized pelvic bony structures: Normal. Paravertebral soft tissues: Normal. IMPRESSION: 1. Progressed moderate central canal stenosis L2-3 and mild central canal stenosis L3-4 with impinge ment on the LEFT L3-4 subarticular recess and traversing LEFT L4 nerve root. 2. Pedicle screw fixation with laminectomy defects L4-L5 and L5-S1. 3. Clumping of the cauda equina nerve rootlets L4 and L5 compatible with arachnoiditis similar to pr evious. 4. Small disc protrusions in the cervical spine at C3-C4 C4-C5 and C6-C7. 5. Disc protrusions with mild central canal stenosis in the upper cervical spine at T1-T2 and T2-T3.
== END 2023-06-30 14:14 | disposition home or self-care (01) ==
LOC: RAD 14:14
PROVIDERS: PCP Nurse Practitioner; Visit Provider Nurse Practitioner
DX: M48.061 Spinal stenosis, lumbar region without neurogenic claudication (principal); M43.16 Spondylolisthesis, lumbar region; Z98.890 Other specified postprocedural states; M50.21 Other cervical disc displacement, high cervical region; M48.03 Spinal stenosis, cervicothoracic region
CPT/HCPCS: 72148

== ENCOUNTER 2024-01-10 14:10 | Outpatient (CLI) | payer BC, SELFPAY ==
--- NOTE | 2024-01-10 14:16 | XRR_ITS ---
PROCEDURE INFORMATION: Exam: XR Chest Exam date and time: 01/10/2024 2:31 PM Age: 73 years old Clinical indication: Condition or disease; Lung condition and disease; Asthma; Additional info: J45.901 TECHNIQUE: Imaging protocol: Radiologic exam of the chest. Views: 2 views. COMPARISON: CR XR chest 2V* [id number] 10/11/2022 8:48 AM FINDINGS: Lungs: No focal consolidation. Pleural spaces: No evidence of pneumothorax. No evidence of pleural effusion. Heart/Mediastinum: Cardiomediastinal silhouette is within normal limits. Bones/joints: No evidence of acute osseous abnormality. XR/XR chest 2V* [id number] IMPRESSION: 1. No acute cardiopulmonary abnormality.
== END 2024-01-10 14:11 | disposition home or self-care (01) ==
LOC: RAD 14:11
PROVIDERS: PCP Nurse Practitioner; Visit Provider Nurse Practitioner
DX: J45.901 Unspecified asthma with (acute) exacerbation (principal)
CPT/HCPCS: 71046